=== PATIENT | male | born 1940 | race African-American/Black ===

== ENCOUNTER → 2018-05-08 | Outpatient (CLI) | payer OTHER ==
[2015-07-27 14:40] VITALS: BP 170/71
[~2018-05-08] MED LIST: ALBU2.5V5 NEB; BENA10TA4 PO; CALC-77 PO; DOXY100C2 PO; FLUT16SP NS; GUAI600T47 PO; LORA10TA68 PO; MULT-629 PO; OMEG1CAP6 PO; PHEN100C PO; PRED50TA PO; TAMS0.4C97 PO
--- NOTE | 2018-05-08 14:57 | RAD ---
Chest, 2 views, 05/08/2018: HISTORY: COPD, shortness of breath Comparison is made to a study from 01/16/2016. There is moderate chronic elevation of the left hemidiaphragm. There is gaseous distention of the stomach and/or splenic flexure beneath the left hemidiaphragm. There is mild associated atelectasis in the left base. There is mild linear scarring or atelectasis in the right base. The heart is at the upper limits of normal in size. The pulmonary vascularity is normal. No pleural fluid is evident. IMPRESSION: 1. Chronic elevation of the left hemidiaphragm with mild to moderate underlying left basilar atelectasis. 2. Mild linear atelectasis or scarring in the right base. Electronically signed by: Alejandro Barahona MD (05/08/2018 2:55 PM) [facility]
== END | disposition home or self-care (01) ==
LOC: RAD 10:56
PROVIDERS: ATTEND Family Medicine
DX: J98.11 Atelectasis (principal); J98.6 Disorders of diaphragm; J44.9 Chronic obstructive pulmonary disease, unspecified; G47.33 Obstructive sleep apnea (adult) (pediatric)
CPT/HCPCS: 71046

== ENCOUNTER → 2018-06-22 | Outpatient (CLI) | payer OTHER ==
[2015-07-27 14:40] VITALS: BP 170/71
--- NOTE | 2018-06-22 08:41 | RAD ---
LUMBAR SPINE 2-3V History: Chronic low back pain Comparison: None. Findings: 4 views lumbar spine are submitted. There is mild lumbar levoscoliosis. There is mild left lateral subluxation L3 relative to L4. There is grade 1 anterior spondylolisthesis at L4-5. There is multilevel fairly advanced degenerative disc disease L2-3 through L5-S1 and to lesser degree at L1-2. There is multilevel facet degenerative change greatest of mid to inferior lumbar levels. There is some atherosclerotic calcification of the abdominal aorta. Calcifications in the left pelvis are more likely due to phleboliths. Impression: 1. No acute radiographic abnormality is identified. 2. There is multilevel lumbar degenerative disc disease and facet degenerative change. There is mild lumbar levoscoliosis and mild abnormal alignment as stated. Electronically signed by: Kenji Yun MD (06/22/2018 8:38 AM) [facility]
--- NOTE | 2018-06-22 09:22 | RAD ---
CT CHEST WO CONTRAST Indication: Abnormal chest x-ray, chronic cough, COPD Technique: Noncontrast CT imaging was performed of the chest, multiplanar reconstruction images submitted. One or more of the following individualized dose reduction techniques were utilized for this examination: 1. Automated exposure control 2. Adjustment of the mA and/or kV according to patient size 3. Use of iterative reconstruction technique. Comparison: 05/08/2018 chest radiograph and July 26, [address] Findings: Compared with previous CT, there is similar appearance of the large left diaphragmatic hernia containing majority of the stomach as well as majority of the body and tail of pancreas,. There is some adjacent left lower lobe lung consolidation with air bronchograms as seen on previous CT although overall decreased, also improved aeration of the lingula. There is no pneumothorax. There is no significant pleural fluid. There is a small calcified right lower lobe pulmonary nodule unchanged. There are also calcified right hilar nodes and mediastinal nodes as seen previously. There is dilatation ascending thoracic aorta about 4.4 cm, similar. There is coronary calcification. Poorly evaluated without contrast is a somewhat lobulated margin of the medial spleen although fairly similar. There is multilevel lumbar neural lumbar degenerative disc disease and spondylosis. There is mild reverse S-shaped scoliosis of the thoracic spine. IMPRESSION: 1. There is again large left diaphragmatic hernia containing majority of the stomach as well as majority of the body and tail of pancreas. There is some adjacent left lower lobe lung consolidation with air bronchograms although decreased compared with the 2016 exam, more likely component of compressive atelectasis although superimposed infectious infiltrate difficult to exclude by imaging. 2. There is stable dilatation of the ascending thoracic aorta about 4.4 cm. There is coronary calcification. 3. There are findings of old granulomatous disease. 4. Poorly evaluated without contrast, there is somewhat lobulated contour of the medial spleen, mass not excluded, although similar compared with 2016 exam. Electronically signed by: Kenji Yun MD (06/22/2018 9:19 AM) [place] [id number]
== END | disposition home or self-care (01) ==
LOC: CT 08:35
PROVIDERS: ATTEND Family Medicine
DX: M51.36 Other intervertebral disc degeneration, lumbar region (principal); M47.816 Spondylosis without myelopathy or radiculopathy, lumbar region; M53.2X6 Spinal instabilities, lumbar region; M43.16 Spondylolisthesis, lumbar region; I70.0 Atherosclerosis of aorta; R91.1 Solitary pulmonary nodule; K44.9 Diaphragmatic hernia without obstruction or gangrene; I25.10 Atherosclerotic heart disease of native coronary artery without angina pectoris; M41.85 Other forms of scoliosis, thoracolumbar region; J44.9 Chronic obstructive pulmonary disease, unspecified
CPT/HCPCS: 71250; 72100

== ENCOUNTER → 2018-11-10 | Outpatient (CLI) | payer OTHER ==
[2015-07-27 14:40] VITALS: BP 170/71
[~2018-11-10] MED LIST changes: -BENA10TA4 PO; +BENA10TA6 PO; +REGADENOSON 0.4 MG/5 ML DISP.SYRIN. IV ONE
--- NOTE | 2018-11-10 11:05 | CARD ---
MR#: [id number] Date of Study: 11/10/2018 Ordering Physician: HOANG GUARDADO, Referring Physician: HOANG GUARDADO Tech: Lupe Turcios LUL APPROVED REPORT EXAM: Two-dimensional and M-mode echocardiogram with Doppler and color Doppler. Other Information Quality : Technically LimitedHR: 78bpm Rhythm : Atrial FibrillationTechnically limited study due to body habitus and lungs. INDICATION Dyspnea 2D DIMENSIONS RVDd3.3 (2.9-3.5cm)Left Atrium(2D)4.0 (1.6-4.0cm) IVSd1.2 (0.7-1.1cm)Aortic Root(2D)3.7 (2.0-3.7cm) LVDd4.5 (3.9-5.9cm)LVOT Diameter2.2 (1.8-2.4cm) PWd1.1 (0.7-1.1cm)LVDs3.3 (2.5-4.0cm) FS (%) 25.2 %SV45.0 ml LVEF(%)49.9 (>50%) M-Mode DIMENSIONS Left Atrium(MM)3.68 (2.5-4.0cm)Aortic Root3.94 (2.2-3.7cm) Aortic Valve AoV Peak Mickey.150.6cm/sAoV VTI30.0cm AO Peak GR.9.1mmHgLVOT Peak Mickey.128.3cm/s AO Mean GR.4mmHgAVA (VMAX)3.11cm2 DANGELO (VTI)3.01nl1PM P 1/2 Rqfq235ar Mitral Valve MV E Vfgvjedd86.9cm/sMV DECEL ACQP250qn MV A Dydozuoj96.9cm/sE/A Ratio0.7 Pulmonary Valve PV Peak Hgwmvdif163.3cm/s Tricuspid Valve TR P. Bjkqfgxi419wl/sRAP FAJPECZL2mwZe TR Peak Gr.33lhLmQHLK50wwSb LEFT VENTRICLE The left ventricle is normal size. There is mild concentric left ventricular hypertrophy. Left ventri edmar systolic function is low normal. The Ejection Fraction is 50-55%. Grossly normal wall motion. Kathy ble to clearly visualize due to limited images. Transmitral Doppler flow pattern is abnormal. RIGHT VENTRICLE The right ventricle is normal size. There is normal right ventricular wall thickness. The right ventr icular systolic function is normal. ATRIA The left atrium size is normal. The right atrium size is normal. The interatrial septum is intact wit h no evidence for an atrial septal defect or patent foramen ovale as noted on 2-D or Doppler imaging. AORTIC VALVE The aortic valve is trileaflet. The aortic valve is normal in structure and function. Doppler and Col or Flow revealed mild to moderate aortic regurgitation. There is no significant aortic valvular steno sis. There is no aortic valvular vegetation. MITRAL VALVE The mitral valve is normal in structure and function. There is no evidence of mitral valve prolapse. There is no mitral valve stenosis. Doppler and Color-flow revealed mild mitral regurgitation. TRICUSPID VALVE The tricuspid valve is normal in structure and function. Doppler and Color Flow revealed mild tricusp id regurgitation. The PA pressure was estimated at 30 mmHg. There is no tricuspid valve prolapse or v egetation. There is no tricuspid valve stenosis. PULMONIC VALVE The pulmonic valve is not well visualized. GREAT VESSELS The aortic root is mildly enlarged at 3.8cm. The ascending aorta is Mildly dilated at 4.0cm. The IVC is normal in size and collapses >50% with inspiration. PERICARDIAL EFFUSION There is no evidence of significant pericardial effusion. Critical Notification Critical Value: No <Conclusion> Left ventricle systolic function is low normal. The Ejection Fraction is 50-55%. Grossly normal wall motion. Unable to clearly visualize due to limited images. Doppler and Color Flow revealed mild to moderate aortic regurgitation. The ascending aorta is Mildly dilated at 4.0cm. Signed by : José Miguel Soriano, Electronically Approved : 11/10/2018 11:05:39
--- NOTE | 2018-11-10 13:48 | RAD ---
MR#: [id number] Date of Study: 11/10/2018 Ordering Physician: HOANG GUARDADO, Referring Physician: CHERISE MELENDEZ Tech: GLORIA Hair APPROVED REPORT Test Type: Pharmacological Stress Nurse/Tech: Cee Holden RN Test Indications: Dyspnea on exertion Cardiac History: COPD, HTN, Decreased kidney function Medications: Zocor Medical History: See Electronic Medical Record Resting ECG: SR with PAC Resting Heart Rate: 56 bpm Resting Blood Pressure: 115/54mmHg Pretest Chest Pain: None Nurse/Tech Notes Lungs CTA, S1S2 Consent: The procedure was explained to the patient in lay terms. Informed consent was witnessed. Vishnu eout was entered into [employer]. History and Stress Test performed by Cee Holden RN Pharm. Details Pharmacologic stress testing was performed using 0.4mg per 5ml of regadenoson given intravenously ove r 7-10 seconds. Stress Symptoms dyspnea POST EXERCISE Reason for Termination: Infusion complete Max HR: 90 bpm Max Blood Pressure: 117/60mmHg Blood Pressure response to exercise: Normal blood pressure response during stress. Heart Rate response to exercise: normal response Chest Pain: No. Arrhythmia: Yes. PAC, PVC ST Change: No. INTERPRETATION Stress EKG Conclusion: No evidence of stress induced EKG changes Imaging Protocol IMAGE PROTOCOL: Rest Tc-99m/stress Tc-99m 1 day Rest: Stress: Viability: Radiopharm.Tc99m SrswofnphYa99k Sestamibi Yrrm20lAp 33mCi Duration 15.5min. 13min. Img Date 11/10/2018 11/10/2018 Inj-Img Cntb62jib. 60min. Rest Admin Site:IV - Left ForearmAdministrator:GLORIA Hair Stress Admin Site: IV - Left ForearmAdministrator: DANICA Valerio, ARRT (R)(N) STRESS DATA End Diast. Vol.97.0mlLVEDV index BSA43.0ml End Syst. Vol.24.0mlLVESV index BSA10.0ml Myocardial Ufio223.0gEject. Pmwnxytw37.0% Stress Scores Regional WT1.00Summed WT17.00 Regional WM0.00Summed WM0.00 The rest and stress images show normal perfusion, normal contraction and thickening. LV Perf. Quant 17 Seg. SSS2.00 17 Seg. SRS4.00 17 Seg. SDS1.00 Stress Defect Extent (% LAD)0.60Rest Defect Extent (% LAD)0.00Rev. Defect Extent (% LAD)0.60 Stress Defect Extent (% LCX) 6.30Rest Defect Extent (% LCX)28.80Rev. Defect Extent (% LCX)3.80 Stress Defect Extent (% RCA)0.00Rest Defect Extent (% RCA)0.00Rev. Defect Extent (% RCA)0.00 Stress Defect Extent (% RADHA)2.40Rest Defect Extent (% RADHA)6.50Rev. Defect Extent (% RADHA)2.00 Other Information Quality:Good Risk Assessment: Low Risk Conclusion 1. No evidence of EKG changes with stress testing. 2. Normal perfusion at stress/rest. 3. Low risk study. 4. EF > 60%. Signed by : José Miguel Soriano, Electronically Approved : 11/10/2018 13:48:10
== END | disposition home or self-care (01) ==
LOC: NM 09:01
PROVIDERS: ATTEND Internal Medicine Cardiovascular Disease
DX: I08.3 Combined rheumatic disorders of mitral, aortic and tricuspid valves (principal); J44.9 Chronic obstructive pulmonary disease, unspecified; I13.10 Hypertensive heart and chronic kidney disease without heart failure, with stage 1 through stage 4 chronic kidney disease, or unspecified chronic kidney disease; N18.9 Chronic kidney disease, unspecified; I48.92 Unspecified atrial flutter
CPT/HCPCS: 78452; 93017; 93306; A9500; J2785